=== PATIENT | male | born 1985 | race Caucasian/White ===

== ENCOUNTER 2023-04-25 23:18 | Emergency (ER) | payer OTHER | END 2023-04-25 23:57 | disposition home or self-care (01) | LOC: ERS 23:18 | DX: R09.81 Nasal congestion (principal); R05.9 Cough, unspecified; I10 Essential (primary) hypertension; Z20.822 Contact with and (suspected) exposure to COVID-19; Z79.899 Other long term (current) drug therapy | CPT/HCPCS: 87635; 99283 ==